=== PATIENT | female | born 1995 | race Caucasian/White ===

== ENCOUNTER 2023-11-10 13:09 | Emergency (ER) | payer OTHER ==
[~2023-11-10] VITALS: Ht 165.1 cm; Wt 64.0 kg
[2023-11-10 13:27] VITALS: BP 120/86; PULSE 60; RESP 16; TEMP 98.4; O2SAT 100
== END 2023-11-10 19:25 | disposition left against medical advice (07) ==
LOC: ER 13:09
DX: R53.1 Weakness (principal); Z53.21 Procedure and treatment not carried out due to patient leaving prior to being seen by health care provider